=== PATIENT | female | born 1945 | race Caucasian/White ===

== ENCOUNTER 2018-12-06 13:44 | Outpatient (REF) | payer MEDICARE, SELFPAY ==
[2018-12-06 18:44] LABS: HCT 45.2 % (36.0-46.0); Mean Corp. HGB Concentration 33.2 g/dL (32.0-36.0); Mean Corpuscular Hemoglobin 33.3 pg (27.0-33.0); Mean Corpuscular Volume 100.4 fL (80-95); Mean Platelet Volume 9.2 fL (8.0-11.0); Platelet Count 344 x1000/uL (130-400); RBC Distribution Width 12.9 % (11.7-14.6); White Blood Cell Count 8.78 k/cumm (4.4-10.8)
[2018-12-06 19:32] LABS: Anion Gap 9.8 mmol/L (3-11); BUN 10 mg/dL (7-18); CO2 30.2 mmol/L (21.0-32.0); CREATININE 0.73 mg/dL (0.55-1.02); Calcium 9.9 mg/dL (8.5-10.1); Chloride 100 mmol/L (98-107); Glucose 92 mg/dL (70-100); Magnesium 1.9 mg/dL (1.8-2.4); Sodium 140 mmol/L (136-145); TSH (W/Ref FT4) 2.76 uIU/mL (0.358-3.74); Vitamin B12 899 pg/mL (193-986)
== END 2018-12-06 14:04 ==
LOC: NCHCN 13:44
PROVIDERS: PCP Family Medicine; Visit Provider Family Medicine
DX: R53.83 Other fatigue (principal); I10 Essential (primary) hypertension
CPT/HCPCS: 80048; 85027; 82607; 83735; 84443

== ENCOUNTER 2019-04-20 11:09 | Outpatient (REF) | payer MEDICARE, SELFPAY ==
[2019-04-20 18:42] LABS: Anion Gap 9.4 mmol/L (3-11); BUN 12 mg/dL (7-18); CO2 29.6 mmol/L (21.0-32.0); CREATININE 0.65 mg/dL (0.55-1.02); Calcium 9.5 mg/dL (8.5-10.1); Chloride 99 mmol/L (98-107); Glucose 98 mg/dL (70-100); Potassium 4.7 mmol/L (3.5-5.1); Sodium 138 mmol/L (136-145)
== END 2019-04-20 11:29 ==
LOC: NCHCN 11:09
PROVIDERS: PCP Family Medicine; Visit Provider Family Medicine
DX: E87.6 Hypokalemia (principal); I10 Essential (primary) hypertension
CPT/HCPCS: 80048

== ENCOUNTER 2019-09-21 22:48 | Outpatient (REF) | payer MEDICARE, SELFPAY ==
[2019-09-21 19:16] LABS: Anion Gap 11.3 mmol/L (3-11); BUN 18 mg/dL (7-18); CO2 27.7 mmol/L (21.0-32.0); CREATININE 0.76 mg/dL (0.55-1.02); Calcium 9.6 mg/dL (8.5-10.1); Chloride 92 mmol/L (98-107); Glucose 85 mg/dL (74-106); Potassium 4.5 mmol/L (3.5-5.1); Sodium 131 mmol/L (136-145)
== END 2019-09-21 23:08 ==
LOC: NCHCN 22:48
PROVIDERS: PCP Family Medicine; Visit Provider Family Medicine
DX: I10 Essential (primary) hypertension (principal); E87.6 Hypokalemia
CPT/HCPCS: 80048

== ENCOUNTER 2020-02-13 12:17 | Outpatient (REF) | payer MEDICARE, SELFPAY ==
[2020-02-13 15:28] LABS: ALT 23 U/L (14-59); AST 21 U/L (15-37); Albumin 4.1 g/dL (3.4-5.0); Alkaline Phosphatase 73 U/L (46-116); Anion Gap 5.1 mmol/L (3-11); BUN 13 mg/dL (7-18); Bilirubin, Total 0.3 mg/dL (0.2-1.0); CO2 30.9 mmol/L (21.0-32.0); CREATININE 0.84 mg/dL (0.55-1.02); Calcium 9.8 mg/dL (8.5-10.1); Chloride 98 mmol/L (98-107); Glucose 104 mg/dL (74-106); NT-proBNP 32 pg/mL (<300); Potassium 4.6 mmol/L (3.5-5.1); Sodium 134 mmol/L (136-145); Total Protein 7.4 g/dL (6.4-8.2)
== END 2020-02-13 12:37 ==
LOC: NCHCN 12:17
PROVIDERS: PCP Family Medicine; Visit Provider Family Medicine
DX: R06.02 Shortness of breath (principal)
CPT/HCPCS: 80053; 83880

== ENCOUNTER 2020-02-13 12:41 | Outpatient (CLI) | payer MEDICARE, SELFPAY ==
--- NOTE | 2020-02-13 12:35 | DI.RAD_ITS ---
EXAM: XR CHEST 2V PA LATERAL CLINICAL HISTORY: SHORTNESS OF BREATH, R06.02, SMOKER, SUBACUTE SOB TECHNIQUE: 2D digital imaging was performed. COMPARISON: CR from 11/16/2011 CT CHEST WITH CONTRAST from 11/24/2011 FINDINGS: The heart size is normal. The aorta shows calcification. There is a circumscribed mass seen in the right lower lobe measuring 4 cm in diameter. No additional masses are seen. There are underlying f ibrotic changes. There is right pleural thickening. No adenopathy is visible. No infiltrates or ef fusions are seen. There is a moderate mid thoracic compression fracture. There are mild compression fractures of the lower thoracic spine. IMPRESSION: 4 centimeter right lower lobe mass. A chest CT is recommended for further evaluation.
== END 2020-02-13 13:01 ==
PROVIDERS: PCP Family Medicine; Visit Provider Family Medicine
DX: R06.02 Shortness of breath (principal); F17.200 Nicotine dependence, unspecified, uncomplicated; R91.8 Other nonspecific abnormal finding of lung field; J98.4 Other disorders of lung
CPT/HCPCS: 71046

== ENCOUNTER 2020-02-21 01:56 | Outpatient (CLI) | payer MEDICARE, SELFPAY ==
--- NOTE | 2020-02-21 13:45 | DI.CT_ITS ---
EXAM: CT CHEST W CLINICAL HISTORY: LUNG MASS, R91.8, [address] A/W COMPRESSION FX, SMOKER TECHNIQUE: CT examination of the chest was performed with a bolus infusion of 70 cc of Omnipaque 350 . COMPARISON: CT CHEST WITH CONTRAST from 11/24/2011 CR XR CHEST 2V PA LATERAL from 02/13/2020 FINDINGS: Images obtained through the upper abdomen show unremarkable appearance of visualized portions of the liver, pancreas, and bile ducts. Gallbladder has been surgically removed. Spleen contains tiny calc ified granuloma. The adrenals are unremarkable in appearance bilaterally. Visualized portions of the kidneys appear n ormal except for a nonobstructing right renal 2 millimeter stone. There is no mediastinal or hilar adenopathy. The tracheobronchial tree appears intact. No evidence of pulmonary embolic disease. Thoracic aorta has a calcified wall, but there is no evidence of aneur ysm or dissection. There is a 4 cm in diameter rounded well-circumscribed mass of the right lower lobe, which abuts the pleura posterolaterally. This contains concentric areas of cavitation and contains numerous calcific ations. Additionally, there are areas of mixed consolidative and ground-glass opacity seen in right upper lob e, lingula, and left lower lobe. These do not appear to be calcified. There are apparent early area s of cavitation in each of these sites. No pleural effusion seen. Additional minimal ground-glass opacities seen in a few locations, most ma rked in the right lung base posteriorly. IMPRESSION: Dominant right lower lobe cavitating mass containing multiple calcifications. Multiple scattered are as of consolidative and ground-glass opacities also noted in both lungs with apparent associated cavi tation versus emphysematous blebs. Differential diagnosis includes neoplastic disease, primary or metastatic; atypical infection includi ng mycobacterial infection or echinococcus may also be considered. The additional areas of consolidative and ground-glass mixed opacity with possible cavitation may als o be of infectious or neoplastic origin and may represent manifestations of the primary diagnosis colin mateus a secondary diagnosis. Tissue sampling recommended for further evaluation.
[2020-02-21] MEDS: Omnipaque 350 MG/ML 100 ML BTL IJ (14:20)
[2020-02-21] MEDS: Normal Saline - Diluent 50 ML VIAL IV (14:21)
== END 2020-02-21 02:16 ==
PROVIDERS: PCP Family Medicine; Visit Provider Family Medicine
DX: R91.8 Other nonspecific abnormal finding of lung field (principal); F17.210 Nicotine dependence, cigarettes, uncomplicated; N20.0 Calculus of kidney; D73.89 Other diseases of spleen; J98.4 Other disorders of lung
CPT/HCPCS: 71260; J3490

== ENCOUNTER 2020-03-25 02:15 | Outpatient (CLI) | payer MEDICARE, SELFPAY ==
[2020-03-25 11:25] LABS: Abs Immature Grans 0.03 k/cumm (0.0-0.09); Absolute Basophil Count 0.06 k/cumm (0.0-0.2); Absolute Lymphocyte Count 1.53 k/cumm (1.2-3.4); Absolute Monocyte Count 0.65 k/cumm (0.11-0.7); Absolute Neutrophil Count 5.79 k/cumm (1.2-6.7); Basophils % 0.7; Eosinophils % 2.4; HCT 45.5 % (36.0-46.0); HGB 14.9 g/dL (12.0-15.5); Immature Grans % 0.4 %; Lymphocytes % 18.5; Mean Corp. HGB Concentration 32.7 g/dL (32.0-36.0); Mean Corpuscular Hemoglobin 33.2 pg (27.0-33.0); Mean Corpuscular Volume 101.3 fL (80-95); Mean Platelet Volume 9.1 fL (8.0-11.0); Monocytes % 7.9; Neutrophils % 70.1; Platelet Count 353 x1000/uL (130-400); RBC 4.49 m/cumm (4.00-5.20); RBC Distribution Width 12.8 % (11.7-14.6); White Blood Cell Count 8.26 k/cumm (4.4-10.8)
[2020-03-25 12:02] LABS: Prothrombin Time 10.4 sec (9.3-11.0)
[2020-03-25 12:18] LABS: BUN 16 mg/dL (7-18); CREATININE 0.76 mg/dL (0.55-1.02)
== END 2020-03-25 02:35 ==
PROVIDERS: PCP Family Medicine; Visit Provider Internal Medicine
DX: R91.8 Other nonspecific abnormal finding of lung field (principal); R06.02 Shortness of breath
CPT/HCPCS: 36415; 84520; 82565; 85025; 85610; 85730

== ENCOUNTER 2020-03-25 02:35 | Outpatient (CLI) | payer MEDICARE, SELFPAY | END 2020-03-25 02:55 | PROVIDERS: PCP Family Medicine; Visit Provider Internal Medicine | DX: R94.31 Abnormal electrocardiogram [ECG] [EKG] (principal); R91.8 Other nonspecific abnormal finding of lung field; R06.02 Shortness of breath | CPT/HCPCS: 36415; 84520; 82565; 85025; 85610; 85730; 93005; 93010 ==

== ENCOUNTER 2020-06-27 00:25 | Outpatient (CLI) | payer MEDICARE, SELFPAY ==
--- NOTE | 2020-06-27 | DI.CT_ITS ---
EXAM: CT CHEST WO CLINICAL HISTORY: F/U LUNG MASS, R91.8 TECHNIQUE: COMPARISON: CT CT CHEST W from 02/21/[address] CHEST W from 02/21/2020 FINDINGS: CT examination of the chest was performed without contrast administration. Today's examination is co mpared with prior chest CT February 20. The previous examination showed a 4 cm right lower lobe pulmona ry mass and multiple areas of ground-glass opacity in both lungs, the mass and areas of ground-glass opacity contained areas of apparent cavitation. On today's examination the findings are essentially unchanged comparison with prior study. No new ma ss. No interval change in size of the areas of intrapulmonary abnormality in either lung. No medias tinal or hilar adenopathy. No pleural effusion. No pneumothorax. Mild underlying emphysematous gagandeep nges noted. Images obtained through the upper abdomen show unremarkable appearance is visualized portions of live r, spleen, adrenals, and kidneys. Note is made of coronary artery calcifications. IMPRESSION: Stable appearance of cavitating right pulmonary mass and bilateral areas of ground-glass opacity. The patient states that she has had an interval lung biopsy which was negative for malignancy. RADIATION DOSE DELIVERED: 491.75mGy.cm Total DLP
== END 2020-06-27 00:45 ==
PROVIDERS: PCP Family Medicine; Visit Provider Internal Medicine
DX: R91.8 Other nonspecific abnormal finding of lung field (principal)
CPT/HCPCS: 71250

== ENCOUNTER 2021-02-28 16:54 | Outpatient (REF) | payer MEDICARE, SELFPAY ==
[2021-02-28 16:07] LABS: Anion Gap 10.4 mmol/L (3-11); BUN 18 mg/dL (7-18); CO2 27.6 mmol/L (21.0-32.0); CREATININE 0.8 mg/dL (0.55-1.02); Calcium 9.4 mg/dL (8.5-10.1); Calculated LDL 160 mg/dL (<100); Chloride 99 mmol/L (98-107); Cholesterol 243 mg/dL (<200); Glucose 110 mg/dL (74-106); HDL Cholesterol 56 mg/dL (40-60); Potassium 4.7 mmol/L (3.5-5.1); Sodium 137 mmol/L (136-145); Triglyceride 136 mg/dL (<150)
[2021-03-03 10:15] LABS: Hepatitis C Ab w Rflx HCV PCR Negative (Negative)
== END 2021-02-28 16:55 | disposition home or self-care (01) ==
LOC: NCHCN 16:54
PROVIDERS: PCP Family Medicine; Visit Provider Family Medicine
DX: I10 Essential (primary) hypertension (principal); R91.8 Other nonspecific abnormal finding of lung field; Z11.59 Encounter for screening for other viral diseases; E78.5 Hyperlipidemia, unspecified; I67.9 Cerebrovascular disease, unspecified
CPT/HCPCS: 80048; 80061; 86803

== ENCOUNTER 2021-03-14 04:24 | Outpatient (CLI) | payer MEDICARE, OTHER, SELFPAY ==
--- NOTE | 2021-03-14 | DI.CT_ITS ---
Exam(s) CT CHEST W EXAM: CT CHEST W CLINICAL HISTORY: F/U LUNG MASS, R91.8 TECHNIQUE: Imaging Protocol: Axial computed tomography images with coronal and sagittal reformatted images were created and reviewed CONTRAST MATERIAL: Intravenous: Omnipaque 350 Contrast volume:70 ml. COMPARISON: CT CHEST WITH CONTRAST from 11/24/2011 CT CHEST WITH CONTRAST from 11/24/[address] CHEST W from 02/21/[address] CHEST W from 02/21/[address] CHEST WO from 06/27/2020 FINDINGS: Tracheobronchial tree: No bronchiectasis or mucous plugging. Mediastinum and Jana: No dominant adenopathy or fluid collection. Pulmonary parenchyma: No consolidation . Mild emphysematous changes upper lobes. Stable partially ca vitary mass right lower lobe with calcifications. No new mass.. Stable area ground-glass opacity po steriorly in the left lower lobe. Stable densities right upper lobe. Pleura: No effusion or pneumothorax. Heart: The heart is not dilated. Severe coronary artery calcifications are seen. Aorta: Thoracic aorta non-dilated. Prominent atherosclerotic changes. Upper abdomen: Prior cholecystectomy. Heterogeneous fatty infiltration. Question of a mass in the inferior right lobe of the liver measuring roughly 4 x 5 cm. Small diverticulum of the descending du odenum. Lymph nodes: Within normal limits. Bones: Stable midthoracic compression fracture. Degenerative changes. Old upper sternal fracture. Tubes, Catheters, and Lines: None Soft tissues: Unremarkable. IMPRESSION: Stable partially cavitary mass right lower lobe. Stable areas of cavitation with adjacent ground-gla ss opacity in the right upper and left lower lobes. Underlying emphysematous changes. Mass in the inferior right lobe of the liver. MRI could be considered for further evaluation. The pre vious exams did not extend inferiorly to include this area. RADIATION DOSE DELIVERED: Total DLP DATA REPOSITORY: All CT scans at this facility are submitted to the National Radiology Data Registry (NRDR) Dose Index Registry (DIR) with the [employer] ([employer]). RADIATION OPTIMIZATION: All CT scans at this facility use at least one of these dose optimization te chniques: automated exposure control; mA and/or kV adjustment per patient size (includes targeted exa ms where dose is matched to clinical indication); or iterative reconstruction.
[2021-03-14] MEDS: Omnipaque 350 MG/ML 100 ML BTL IJ (15:53)
== END 2021-03-14 04:44 ==
PROVIDERS: PCP Family Medicine; Visit Provider Family Medicine
DX: R91.8 Other nonspecific abnormal finding of lung field (principal); R16.0 Hepatomegaly, not elsewhere classified
CPT/HCPCS: 71260; J3490

== ENCOUNTER 2021-08-07 15:47 | Outpatient (REF) | payer MEDICARE, OTHER, SELFPAY ==
[2021-08-07 16:57] LABS: HCT 44.6 % (36.0-46.0); HGB 14.4 g/dL (11.2-15.7); MCH 31.8 pg (27.0-33.0); MCHC 32.3 % (32.0-36.0); MCV 98.5 fL (80-95); MPV 9.8 fL (8.0-11.0); Platelet Count 333 10^3/uL (130-400); RBC 4.53 10^6/uL (3.93-5.22); RDW 12.7 % (11.7-14.6); RDW-SD 46.3 fL
[2021-08-07 17:33] LABS: ALT 24 U/L (14-59); AST 24 U/L (15-37); Albumin 4.2 g/dL (3.4-5.0); Alkaline Phosphatase 100 U/L (46-116); Anion Gap 11.6 mmol/L (3-11); BUN 17 mg/dL (7-18); Bilirubin, Total 0.4 mg/dL (0.2-1.0); CO2 28.4 mmol/L (21.0-32.0); CREATININE 0.8 mg/dL (0.55-1.02); Calcium 9.7 mg/dL (8.5-10.1); Chloride 101 mmol/L (98-107); Glucose 113 mg/dL (74-106); LDL CHOLESTEROL 57 mg/dL (<100); Potassium 4.2 mmol/L (3.5-5.1); Sodium 141 mmol/L (136-145); Total Protein 7.4 g/dL (6.4-8.2)
[2021-08-11 11:32] LABS: AFP Tumor Marker 23.1 ng/mL (<8.1)
== END 2021-08-07 15:48 | disposition home or self-care (01) ==
LOC: NCHCN 15:47
PROVIDERS: PCP Family Medicine; Visit Provider Family Medicine
DX: K76.89 Other specified diseases of liver (principal); I67.9 Cerebrovascular disease, unspecified; I10 Essential (primary) hypertension; E78.5 Hyperlipidemia, unspecified
CPT/HCPCS: 80053; 83721; 85027; 82105

== ENCOUNTER 2021-08-29 13:33 | Outpatient (CLI) | payer MEDICARE, OTHER, SELFPAY ==
[2021-09-04] MEDS: Omnipaque 350 MG/ML 50 ML BTL PO (13:24)
--- NOTE | 2021-09-04 15:00 | DI.CT_ITS ---
Exam(s) CT ABDOMEN WO/W EXAM: CT ABDOMEN WO/W CLINICAL HISTORY: GROWING LIVER MASS, K76.89 TECHNIQUE: This study was limited to the abdomen. Pelvis was not scanned. 100 cc IV contrast. Oral contrast also administered. COMPARISON: CT CT CHEST W from 02/21/[address] CHEST W from 02/21/[address] CHEST W from 03/14/[address] CHEST W from 03/14/2021 FINDINGS: Visualized lung bases: Previously described pleural base mass in the right lower lobe again noted.. Is again noted partially calcified. No associated overlying rib destruction or pleural effusion. Th ere is also similar location pleural base ground-glass infiltrate in the opposite-left lung left lowe r lobe. This infiltrate is slightly increased in size from February 2020. Slight thickening of the anterior pericardium consistent small pericardial effusion. Thickness is 4 millimeters. Heart size is normal. There is no ascites evident in the upper abdomen. LIVER: There both individual and coalescent lesions in the right hepatic lobe which are concerning for neopl astic disease, probably metastatic no focal findings in the left hepatic lobe. No dilatation of intr ahepatic ducts. GALLBLADDER/BILIARY: The gallbladder surgically absent. The CBD is not dilated. PANCREAS: There is a contrast in the CBD at the level the pancreatic head. There is, however, no obv ious pancreatic mass evident. No dilatation of the pancreatic duct. The uncinate process retains no rmal triangular configuration. SPLEEN: Spleen size is normal. A small solitary 2 millimeter calcified granuloma the lateral aspect spleen. However, more medially there is a solid mass in the spleen measuring 3.6 cm AP by 2.7 cm wid e by by 2.8 cm craniocaudal. The splenic and portal veins are patent. ADRENALS: There are no significant adrenal masses. KIDNEYS: There calcifications medially in both kidneys may be vascular. There are no obstructing irene al calculi. No solid renal masses. No cysts in either kidney. No hydronephrosis. ABDOMINAL AORTA: Calcified but not enlarged. LYMPH NODES: There is no para-aortic adenopathy. No retroperitoneal adenopathy. ANTERIOR ABDOMINAL WALL: No evidence of hernia at and below the level of the umbilicus. OSSEOUS: There are no lytic nor blastic osseous lesions seen in the field of view of this study. The re is, however, slight height loss of superior endplate of L1 vertebral body but this is unchanged fr om CT scan of February 2020. Compression for fracture of T8 is also unchanged from that time. There is a healed fracture of the posterior aspect of the right 10th rib. GI: No bowel obstruction. No free air. IMPRESSION: The above described findings in the right hepatic lobe are significantly specialists for neoplastic d isease, either hepatoma with satellite lesions or varying size metastatic lesions. Biopsy is recomme nded. Partially cavitated pleural base mass in the right lower lobe is unchanged from February 2020. The subpleural infiltrate in the left lower lobe has slightly increased in size from February 2020. This requires close follow-up. There are no pleural effusions. There is a solid mass in the medial aspect of the upper spleen measuring 36 x 27 x 28 millimeters. T his is suspicious for neoplasm. Other findings as above.
[2021-09-04] MEDS: Omnipaque 350 MG/ML 100 ML BTL IJ (15:05)
== END 2021-08-29 13:53 ==
PROVIDERS: PCP Family Medicine; Visit Provider Family Medicine
DX: K76.89 Other specified diseases of liver (principal); R91.8 Other nonspecific abnormal finding of lung field
CPT/HCPCS: 74170; J3490; Q9967

== ENCOUNTER 2021-11-06 00:52 | Outpatient (CLI) | payer MEDICARE, OTHER, SELFPAY ==
--- NOTE | 2021-11-06 | DI.MRI_ITS ---
Exam(s) MR ABDOMEN WO/W EXAM: MR ABDOMEN WO/W CLINICAL HISTORY: LIVER MASS ON CT, K76.89, ABNL IMAGING, R93.5 TECHNIQUE: Multiplanar multisequence MRA of the Abdomen was performed. CONTRAST MATERIAL: IV Contrast: 15 mL of Dotarem contrast administered. COMPARISON: CT CT ABDOMEN WO/W from 09/04/2021 FINDINGS: Liver: There are multiple hepatic masses present. (Greater than 10). The largest measures 6.3 trans verse by 6.6 AP by 7.1 craniocaudad cm. They are hyperintense on the T2 weighted images relative to the liver, but not as hyperintense as CSF. They are hypointense on the T1 weighted images. Following contrast administration the masses show progressive enhancement. The enhancement pattern is heterog eneous and does not follow the signal of the aorta. Pancreas: Unremarkable. Gallbladder and Bile Ducts: Status post cholecystectomy. No biliary ductal dilatation. Adrenals: Unremarkable. Kidneys: There is a 0.7 cm simple cyst in the left kidney. The kidneys are otherwise unremarkable. Spleen: There is a 3.3 x 3.1 cm mass in the spleen. Is isointense to the spleen on the T2 weighted i mages and T1 weighted images. There is homogeneous enhancement following contrast administration. Bowel: There is diverticulosis seen in the descending colon. No evidence of acute diverticulitis. Aorta: Unremarkable. Soft Tissues: Unremarkable. Bone: Unremarkable. Lymph Nodes: Unremarkable. IMPRESSION: 1. Multiple enhancing hepatic masses as described above. Biopsy is recommended for further evaluation . Neoplasm/Metastatic disease cannot be excluded. Other hepatic masses including hemangiomas should a lso be considered. 2. Splenic lesion. Given the findings in the liver a metastasis cannot be excluded. Biopsy should be considered for further evaluation. DATA REPOSITORY:
[2021-11-06 09:42] LABS: Abs Immature Grans 0.05 10^3/uL (0.0-0.06); Absolute Basophil Count 0.11 10^3/uL (0.0-0.2); Absolute Eosinophil Count 0.17 10^3/uL (0.0-0.7); Absolute Lymphocyte Count 1.56 10^3/uL (1.2-3.4); Absolute Monocyte Count 0.76 10^3/uL (0.1-0.8); Eosinophils % 1.5; HCT 42.6 % (36.0-46.0); HGB 13.7 g/dL (11.2-15.7); Immature Grans % 0.4; Lymphocytes % 13.6; MCH 30.6 pg (27.0-33.0); MCHC 32.2 % (32.0-36.0); MCV 95.3 fL (80-95); Monocytes % 6.6; Neutrophils % 76.9; Nucleated RBC 0 %; Platelet Count 393 10^3/uL (130-400); RBC 4.47 10^6/uL (3.93-5.22); RDW 12.7 % (11.7-14.6); RDW-SD 45.1 fL; WBC 11.45 10^3/uL (4.4-10.8)
[2021-11-06 09:53] LABS: Absolute Neutrophil Count 8.81 10^3/uL (1.2-6.7)
[2021-11-06 09:58] LABS: Prothrombin Time 10.4 sec (9.3-11.0)
[2021-11-06 10:12] LABS: ALT 22 U/L (14-59); AST 26 U/L (15-37); Albumin 3.8 g/dL (3.4-5.0); Alkaline Phosphatase 105 U/L (46-116); Anion Gap 5.1 mmol/L (3-11); BUN 24 mg/dL (7-18); Bilirubin, Total 0.2 mg/dL (0.2-1.0); CO2 30.9 mmol/L (21.0-32.0); CREATININE 0.9 mg/dL (0.55-1.02); Calcium 8.9 mg/dL (8.5-10.1); Chloride 97 mmol/L (98-107); Glucose 123 mg/dL (74-106); Potassium 4.1 mmol/L (3.5-5.1); Sodium 133 mmol/L (136-145); Total Protein 7.4 g/dL (6.4-8.2)
[2021-11-06] MEDS: Gadoterate meglumine 20 ML VIAL IVP (10:53)
== END 2021-11-06 01:12 ==
PROVIDERS: PCP Family Medicine; Visit Provider Family Medicine
DX: K76.89 Other specified diseases of liver (principal); N28.1 Cyst of kidney, acquired; R16.1 Splenomegaly, not elsewhere classified; Z90.49 Acquired absence of other specified parts of digestive tract; D73.89 Other diseases of spleen
CPT/HCPCS: 36415; 74183; 80053; 85025; 85610